=== PATIENT | male | born 1960 | race Caucasian/White ===

== ENCOUNTER 2019-02-08 22:12 | Emergency (ER) | payer BC, OTHER ==
[~2019-02-08] VITALS: Ht 165 cm; Wt 69.5 kg
--- NOTE | 2019-02-08 22:53 | ED Syncope ---
General Chief Complaint: Dizziness/Syncope Stated Complaint: LIGHT-HEADED/PASSED OUT Source of Information: Patient History of Present Illness Date Seen by Provider: Feb 08, 2019 Time Seen by Provider: 22:52 Initial Comments 58-year-old male presenting with complaints of syncope. He had 2 episodes of passing out tonight at home starting around 9 PM. He was feeling dizzy and lightheaded. He denied having symptoms like this in the past. He had not eaten anything since around noon when he had normally. He does have a history of hypertension and takes medicine for that. He denied any chest pain or shortness of breath. He is not having any nausea or vomiting. Denies any recent diarrhea or illness that he is aware of. He has no known cardiac disease for himself for his family. His parents have a history of high blood pressure and high cholesterol. His doctor had taken his blood pressure when she came to the house to check on him this evening and it was 100/60. They were thinking that it might be related to his blood sugar and made him eat some noodles and some candy. He states he feels treatments back to normal now other than his legs feel a little bit weak. Allergies and Home Medications Allergies Coded Allergies: sucralfate (Verified Allergy, Unknown, 02/08/19) Patient Home Medication List Home Medication List Reviewed: Yes Review of Systems Constitutional: No chills, No fever EENTM: no symptoms reported; No blurred vision, No epistaxis, No nose congestion Respiratory: no symptoms reported; No cough Cardiovascular: No chest pain Gastrointestinal: No diarrhea, No nausea, No vomiting Genitourinary: No dysuria, No frequency Musculoskeletal: no symptoms reported; No back pain Skin: other (abrasion and mild tenderness to his upper lip from where he hit it tonight when he had syncope) Psychiatric/Neurological: Denies Headache, Denies Numbness, Denies Paresthesia, Denies Seizure All Other Systems Reviewed Negative Unless Noted: Yes (Negative excepted noted.) Past [id number]-Nkqtge Hx Past Med/Social Hx: Reviewed Nursing Past Med/Soc Hx Patient Social History Recent Foreign Travel: No Contact w/Someone Who Travel: No Past Medical History Respiratory: No Cardiac: Yes Hypertension Neurological: No Genitourinary: No Gastrointestinal: No Musculoskeletal: No Endocrine: No HEENT: No Cancer: No Psychosocial: No Integumentary: No Family Medical History COPD (Father), Hypertension (Mother and Father) Physical Exam Vital Signs Vital Signs - First Documented 02/08/19 22:41 Temp 37.0 Pulse 70 Resp 17 B/P (MAP) 146/74 (98) Pulse Ox 99 O2 Delivery Nasal Cannula O2 Flow Rate 2.00 Capillary Refill : Height, Weight, BMI Height: '" Weight: lbs. oz. kg; BMI Method: General Appearance: No Apparent Distress, WD/WN HEENT: PERRL/EOMI, TMs Normal, Pharynx Normal, Other (upper lip contusion with abrasion ) Neck: Full Range of Motion, Normal Inspection, Non Tender, Supple; No Carotid Bruit Cardiovascular: Regular Rate, Rhythm, No JVD, No Murmur, Normal Peripheral Pulses Respiratory: Chest Non Tender, Lungs Clear, Normal Breath Sounds, No Accessory Muscle Use, No Respiratory Distress Gastrointestinal: Normal Bowel Sounds, No Pulsatile Mass, Non Tender, Soft Back: Normal Inspection, No CVA Tenderness, No Vertebral Tenderness Extremities: Normal Capillary Refill, Normal Inspection, Normal Range of Motion, Non Tender, No Calf Tenderness, No Pedal Edema Neurologic/Psychiatric: Alert, Oriented x3, No Motor/Sensory Deficits, Normal Mood/Affect, 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 Cranial Nerves: Normal Hearing, Normal Speech, PERRL Coordination/Gait: Normal Gait Motor/Sensory: No Motor Deficit, No Sensory Deficit Skin: Normal Color, Warm/Dry, Other (upper lip abrasion with mild swelling) Progress/Results/Core Measures Results/Orders Lab Results Laboratory Tests Test 02/08/19 22:53 Range/Units White Blood Count 6.2 4.3-11.0 10^3/uL Red Blood Count 5.41 4.35-5.85 10^6/uL Hemoglobin 16.1 13.3-17.7 G/DL Hematocrit 47 40-54 % Mean Corpuscular Volume 87 80-99 FL Mean Corpuscular Hemoglobin 30 25-34 PG Mean Corpuscular Hemoglobin Concent 34 32-36 G/DL Red Cell Distribution Width 12.3 10.0-14.5 % Platelet Count 248 130-400 10^3/uL Mean Platelet Volume 9.8 7.4-10.4 FL Neutrophils (%) (Auto) 69 42-75 % Lymphocytes (%) (Auto) 19 12-44 % Monocytes (%) (Auto) 7 0-12 % Eosinophils (%) (Auto) 4 0-10 % Basophils (%) (Auto) 1 0-10 % Neutrophils # (Auto) 4.3 1.8-7.8 X 10^3 Lymphocytes # (Auto) 1.2 1.0-4.0 X 10^3 Monocytes # (Auto) 0.4 0.0-1.0 X 10^3 Eosinophils # (Auto) 0.2 0.0-0.3 10^3/uL Basophils # (Auto) 0.0 0.0-0.1 10^3/uL Prothrombin Time 13.2 12.2-14.7 SEC INR Comment 1.0 0.8-1.4 Activated Partial Thromboplast Time 23 L 24-35 SEC Sodium Level 136 135-145 MMOL/L Potassium Level 3.7 3.6-5.0 MMOL/L Chloride Level 100 98-107 MMOL/L Carbon Dioxide Level 25 21-32 MMOL/L Anion Gap 11 5-14 MMOL/L Blood Urea Nitrogen 12 7-18 MG/DL Creatinine 1.01 0.60-1.30 MG/DL Estimat Glomerular Filtration Rate > 60 BUN/Creatinine Ratio 12 Glucose Level 164 H 70-105 MG/DL Calcium Level 9.0 8.5-10.1 MG/DL Corrected Calcium 8.8 8.5-10.1 MG/DL Magnesium Level 2.3 1.6-2.4 MG/DL Total Bilirubin 0.2 0.1-1.0 MG/DL Aspartate Amino Transf (AST/SGOT) 23 5-34 U/L Alanine Aminotransferase (ALT/SGPT) 30 0-55 U/L Alkaline Phosphatase 91 40-136 U/L Troponin I < 0.30 <0.30 NG/ML Pro-B-Type Natriuretic Peptide 12.7 <75.0 PG/ML Total Protein 6.8 6.4-8.2 GM/DL Albumin 4.3 3.2-4.5 GM/DL My Orders Orders - RAFA SOTO MD Cbc With Automated Diff (02/08/19 22:49) Magnesium (02/08/19 22:49) Chest 1 View Ap/Pa Only (02/08/19 22:49) Ekg Tracing (02/08/19 22:49) Comprehensive Metabolic Panel (02/08/19 22:49) Protime With Inr (02/08/19 22:49) Partial Thromboplastin Time (02/08/19 22:49) O2 (02/08/19 22:49) Monitor-Rhythm Ecg Trace Only (02/08/19 22:49) Ed Iv/Invasive Line Start (02/08/19 22:49) Troponin I Fs (02/08/19 22:49) Probnp Fs (02/08/19 22:49) Ct Head Wo (02/08/19 22:49) Ua Culture If Indicated (02/09/19 00:20) Vital Signs/I&O 02/08/19 02/08/19 22:41 22:43 Temp 37.0 Pulse 70 Resp 17 B/P (MAP) 146/74 (98) Pulse Ox 99 99 O2 Delivery Nasal Cannula Nasal Cannula O2 Flow Rate 2.00 2.00 Progress Progress Note #1: Progress Note Ordered labs as well as electrocardiogram, chest x-ray, CT of the head. His electrocardiogram did not show any acute significant abnormality or signs of ST elevation. There is no prior tracing for available for comparison Progress Note #2: Progress Note No acute abnormality on his chest x-ray. His labs appear stable without acute significant abnormality. His CBC is normal and his chemistry panel was okay other than a mild elevation of his glucose but he did have candy and noodles prior to arriving in the emergency department since the family thought this might be hypoglycemia related. The CT scan of his head was read out as no acute intracranial process by the stat rad radiologist. Patient and family were counseled of the test results. I advised him that I could admit him for continued monitoring from a cardiac standpoint and see if anything else showed up. Also if he wanted to follow-up with his primary doctor, Dr. Nikole Tinoco, and do testing as an outpatient that seemed reasonable as well. Patient opted to do outpt testing rather than be admitted as observation pt. I advised him that if he had any further episodes it would be best to be admitted. In the meantime if this was sugar related he should really make sure he is eating small frequent meals. Initial ECG Impression Date: Feb 08, 2019 Initial ECG Impression Time: 22:43 Initial ECG Rate: 69 Initial ECG Rhythm: Normal Sinus Initial ECG Comparisson: No Previous ECG Available Comment Sinus rhythm with a heart rate is 69 bpm. NC interval of [address] elevation. QT interval 379 ms and a QT corrected interval 406 ms. He has no prior tracing available for comparison. Diagnostic Imaging Diagonstic Imaging: CT Plain Films/CT/US/NM/MRI: head Comments No acute intracranial process. Read by radiologist Marah Arrieta MD at [phone] and faxed at [phone] Reviewed: [facility]: Xray Plain Films/CT/US/NM/MRI: chest Comments On my review of his 1 view chest x-ray he has No acute process in the chest. No cardiomegaly the, infiltrate, effusion. Reviewed: Reviewed by Me Departure Impression Primary Impression: Syncope Qualified Codes: R55 - Syncope and collapse Additional Impressions: Hypotension Qualified Codes: I95.9 - Hypotension, unspecified Abrasion of lip, initial encounter Disposition: HOME, SELF-CARE Condition: Stable Departure-Patient Inst. Decision time for Depature: 00:21 Referrals: NIKOLE TINOCO MD Patient Instructions: Syncope (Fainting) (DC), Orthostatic Hypotension (DC) Add. Discharge Instructions: Follow up with Dr. Tinoco for further evaluation and testing regarding your episodes of passing out and having low blood pressure tonight. If it is related to low blood sugar from not eating for over 9 hours then make sure you are eating small frequent meals to help avoid that happening in the future. If you have more episodes or further problems/concerns then return or seek medical care for more testing and evaluation All discharge instructions reviewed with patient and/or family. Voiced understanding. RAFA SOTO MD Feb 08, 2019 22:53
[2019-02-08 23:00] LABS: HEMATOCRIT 47 % (40-54); HEMOGLOBIN 16.1 G/DL (13.3-17.7); MEAN CORPUSCULAR HEMOGLOBIN 30 PG (25-34); MEAN CORPUSCULAR VOLUME 87 FL (80-99); WHITE BLOOD COUNT 6.2 10^3/uL (4.3-11.0)
[2019-02-08 23:01] LABS: BASOPHILS % (AUTO) 1 % (0-10); EOSINOPHILS # (AUTO) 0.2 10^3/uL (0.0-0.3); EOSINOPHILS % (AUTO) 4 % (0-10); LYMPHOCYTES # (AUTO) 1.2 X 10^3 (1.0-4.0); LYMPHOCYTES % (AUTO) 19 % (12-44); MEAN CORPUSCULAR HGB CONC 34 G/DL (32-36); MEAN PLATELET VOLUME 9.8 FL (7.4-10.4); MONOCYTES # (AUTO) 0.4 X 10^3 (0.0-1.0); MONOCYTES % (AUTO) 7 % (0-12); NEUTROPHILS # (AUTO) 4.3 X 10^3 (1.8-7.8); NEUTROPHILS % (AUTO) 69 % (42-75); PLATELET COUNT 248 10^3/uL (130-400); RED CELL DISTRIBUTION WIDTH 12.3 % (10.0-14.5)
[2019-02-08 23:16] LABS: PROTHROMBIN TIME PATIENT 13.2 SEC (12.2-14.7)
[2019-02-08 23:24] LABS: SODIUM 136 MMOL/L (135-145)
[2019-02-08 23:25] LABS: ALANINE AMINOTRANSFERASE 30 U/L (0-55); ALBUMIN 4.3 GM/DL (3.2-4.5); ALKALINE PHOSPHATASE 91 U/L (40-136); BILIRUBIN,TOTAL 0.2 MG/DL (0.1-1.0); BUN/CREATININE RATIO 12; CARBON DIOXIDE 25 MMOL/L (21-32); CHLORIDE 100 MMOL/L (98-107); CREATININE SERUM 1.01 MG/DL (0.60-1.30); GFR ESTIMATED > 60; GLUCOSE 164 MG/DL (70-105); MAGNESIUM 2.3 MG/DL (1.6-2.4); POTASSIUM 3.7 MMOL/L (3.6-5.0); TOTAL PROTEIN 6.8 GM/DL (6.4-8.2)
[2019-02-09 00:26] VITALS: BP 124/75
[2019-02-09 00:39] LABS: BACTERIA,URINE NEGATIVE /HPF; BILIRUBIN,URINE NEGATIVE (NEGATIVE); CLARITY,URINE CLEAR; COLOR,URINE YELLOW; GLUCOSE, URINE (UA) TRACE (NEGATIVE); KETONES,URINE NEGATIVE (NEGATIVE); LEUKOCYTE ESTERASE ,URINE NEGATIVE (NEGATIVE); NITRITE,URINE NEGATIVE (NEGATIVE); PH,URINE 5.5 (5-9); PROTEIN,URINE NEGATIVE (NEGATIVE); WBC,URINE RARE /HPF
--- NOTE | 2019-02-09 05:32 | Diagnostic Imaging Report ---
INDICATION: Dizziness. Diaphoresis. Syncope. Laceration status post fall. TECHNIQUE: Routine non contrast-enhanced axial images were obtained from the skull base to the vertex. Auto Exposure Controls were utilized during the CT exam to meet ALARA standards for radiation dose reduction COMPARISON: None. FINDINGS: The ventricles and cortical sulci are age-appropriate. There is no midline shift or mass-effect. No acute intra-axial hemorrhage is seen. There are no abnormal areas of increased or decreased density to suggest acute hemorrhage or edema. No extra-axial masses or collections are present. The bony calvarium is intact. The visualized paranasal sinuses are unremarkable. The mastoid air cells are clear. IMPRESSION: 1. No acute intracranial abnormality. No CT evidence of mass, acute infarct or intracranial hemorrhage. Dictated by: Dictated on workstation # [id number]
--- NOTE | 2019-02-09 05:39 | Diagnostic Imaging Report ---
INDICATION: Dizziness. Diaphoresis. Syncope. COMPARISON: None FINDINGS: Single frontal view of the chest demonstrates normal heart size and pulmonary vascularity. The lungs are well aerated and clear. No large pleural effusion or pneumothorax is seen. The visualized osseous structures show no acute abnormalities. IMPRESSION: 1. No acute cardiopulmonary process. Dictated by: Dictated on workstation # [id number]
== END 2019-02-09 00:26 | disposition home or self-care (01) ==
LOC: ER FS 22:16
DX: S00.511A Abrasion of lip, initial encounter (principal); R55 Syncope and collapse; I95.9 Hypotension, unspecified; I10 Essential (primary) hypertension; Z88.8 Allergy status to other drugs, medicaments and biological substances; Z82.49 Family history of ischemic heart disease and other diseases of the circulatory system; X58.XXXA Exposure to other specified factors, initial encounter
CPT/HCPCS: 36415; 70450; 71045; 80053; 81000; 83735; 83880; 84484; 85025; 85610; 85730; 93005; 93041

== ENCOUNTER 2019-02-22 03:15 | Emergency (ER) | payer BC | END 2019-02-22 05:18 | disposition left against medical advice (07) | LOC: EDUNIT# 03:15 → ER FS 03:17 | DX: R53.1 Weakness (principal); R42 Dizziness and giddiness; R03.0 Elevated blood-pressure reading, without diagnosis of hypertension ==

== ENCOUNTER → 2020-04-23 | Outpatient (CLI) | payer BC ==
[2020-04-23 08:22] LABS: ALANINE AMINOTRANSFERASE 25 U/L (0-55); ALBUMIN 4.2 GM/DL (3.2-4.5); ALKALINE PHOSPHATASE 110 U/L (40-136); BILIRUBIN,TOTAL 0.6 MG/DL (0.1-1.0); BUN/CREATININE RATIO 15; CALCIUM 8.9 MG/DL (8.5-10.1); CARBON DIOXIDE 27 MMOL/L (21-32); CHLORIDE 104 MMOL/L (98-107); CREATININE SERUM 1.04 MG/DL (0.60-1.30); GFR ESTIMATED > 60; GLUCOSE 105 MG/DL (70-105); POTASSIUM 4.8 MMOL/L (3.6-5.0); SODIUM 139 MMOL/L (135-145); TOTAL PROTEIN 6.9 GM/DL (6.4-8.2)
[2020-04-23 15:14] LABS: CHOLESTEROL 216 MG/DL (< 200); HDL CHOLESTEROL 57 MG/DL (40-60); TRIGLYCERIDES 126 MG/DL (<150); VLDL CHOLESTEROL 25 MG/DL (5-40)
== END ==
LOC: LAB FS 07:15
PROVIDERS: ATTEND Family Medicine
DX: Z00.00 Encounter for general adult medical examination without abnormal findings (principal); E55.9 Vitamin D deficiency, unspecified; R42 Dizziness and giddiness
CPT/HCPCS: 36415; 80053; 80061; 82306; 82607